=== PATIENT | male | born 1950 | race Caucasian/White ===

== ENCOUNTER 2019-08-07 13:02 | Inpatient (IN) ==
[2019-08-07] MEDS ORDERED: NITROGLYCERIN TOP ONE (13:33)
[2019-08-07] MEDS ORDERED: ASPIRIN PO ONE (13:33)
--- NOTE | 2019-08-07 13:47 | EKG Report ---
Test Performed on : 08/07/2019 1:22:23 PM Test Reason : sob Blood Pressure : / mmHG Vent. Rate : 078 BPM Atrial Rate : 078 BPM P-R Int : 172 ms QRS Dur : 080 ms QT Int : 350 ms P-R-T Axes : 046 001 028 degrees QTc Int : 399 ms Sinus rhythm. with marked sinus arrhythmia. Otherwise normal ECG When compared with ECG of 20-NOV-2007 07:04, No significant change was found Unconfirmed Result
--- NOTE | 2019-08-07 13:51 | Diag Imaging Result Doc PS360 ---
EXAM: CHEST-2 VIEWS 08/07/2019 HISTORY: sob TECHNIQUE: PA and lateral chest COMMENT: There is no evidence of acute cardiac or pulmonary disease. There are no previous studies available for comparison. IMPRESSION: No evidence of acute disease. Electronically signed by Julian Riley 08/07/2019 1:49 PM
[2019-08-07 14:19] LABS: BASO# 0.03 X1000 (0.0-0.2); BASO% 0.3 % (0.0-0.8); EOS# 0.27 X1000 (0.0-0.7); EOS% 2.7 % (0.0-10.0); HEMATOCRIT 47.4 % (42.0-52.0); IMM GRAN# 0.05 X1000 (0.0-0.04); IMM GRAN% 0.5 % (0.0-0.5); LYMPH# 1.76 X1000 (1.2-3.4); LYMPH% 17.6 % (20.5-51.1); MCH 27.7 PG (27-31); MCHC 33.8 g/dL (33-37); MCV 82.1 FL (81-99); MONO# 0.54 X1000 (0.11-0.59); MONO% 5.4 % (1.7-9.3); MPV 9.7 FL (7.4-10.4); NEUT# 7.35 X1000 (1.4-6.5); NEUT% 73.5 % (42.2-75.2); PLT 213 X1000 (130-400); RBC 5.77 XMIL (4.7-6.1); RDW 13.3 % (11.5-14.5)
[2019-08-07 14:23] LABS: INR 1.08; PROTIME 14.1 Seconds (11.0-16.0)
[2019-08-07 14:24] LABS: PTT 33.6 Seconds (22.3-41.8)
[2019-08-07 15:19] LABS: ALB/GLOB RATIO 2.1; ALBUMIN 4.5 g/dL (3.5-5.0); CALCIUM 9.8 mg/dL (8.8-10.2); CREATININE 1.2 mg/dL (0.7-1.2); POTASSIUM 5.1 mmol/L (3.5-5.1); TOTAL BILIRUBIN 0.55 mg/dL (0.20-1.00); TOTAL PROTEIN 6.6 g/dL (6.3-8.3)
--- NOTE | 2019-08-07 16:04 | Diag Imaging Result Doc PS360 ---
EXAM: CT ANGIOGRM PULMONARY ARTERIES 08/07/2019 HISTORY: sudden onset dyspnea TECHNIQUE: This exam was performed using automated exposure control, adjustment of mA or kV according to patient size, and/or use of iterative reconstruction technique. COMMENT: 3-D MIPS were performed. There are no previous studies. There is extensive filling defect within both main renal arteries particularly extending into the lower lobe branches. There are emboli in the anterior segmental branches of both upper lobes as well. The aorta is not distended and there is no evidence of dissection. There are some calcifications in the left anterior descending coronary artery. There is no evidence of pleural fluid. There is cholelithiasis and multiple hepatic cysts are present. There is no evidence of acute pulmonary parenchymal disease. No acute bony abnormalities are present. IMPRESSION: 1. Extensive bilateral pulmonary emboli. 2. Cholelithiasis. Electronically signed by Julian Riley 08/07/2019 4:02 PM
--- NOTE | 2019-08-07 17:48 | EKG Report ---
Test Performed on : 08/07/2019 5:41:25 PM Test Reason : shortness of breath Blood Pressure : / mmHG Vent. Rate : 084 BPM Atrial Rate : 084 BPM P-R Int : 178 ms QRS Dur : 074 ms QT Int : 338 ms P-R-T Axes : 016 -18 -04 degrees QTc Int : 399 ms Normal sinus rhythm. Normal ECG When compared with ECG of 07-AUG-2019 13:22, (Unconfirmed) Inverted T waves have replaced nonspecific T wave abnormality in Inferior leads Unconfirmed Result
[2019-08-07] MEDS ORDERED: LOVENOX 1 MG/KG SUBQ ONE (17:49)
--- NOTE | 2019-08-07 17:53 | PROVIDER DOCUMENTATION ---
This chart was entered by Neo Hinkle Scribe, acting as scribe for Yon Carpenter MD. HPI-Respiratory General - General Chief Complaint: Shortness of Breath Stated Complaint: SOB Time Seen by Provider: 08/07/19 13:24 Source: patient Allergies/Adverse Reactions: Patient Allergies Allergy/AdvReac Type Severity Reaction Status Date / Time No Known Allergies Allergy Verified 08/07/19 14:37 Home Medications: Home Medication List Medication Instructions Recorded Confirmed Last Taken Type Cephalexin 1 cap PO BID 08/07/19 08/07/19 Unknown History Loratadine [Claritin] 1 tab PO DAILY 08/07/19 08/07/19 Unknown History - History of Present Illness-Resp Nature of Presenting Problem: 68 y/o M presents to the ED with spouse due to shortness of breath. 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 Patient reports during that time he did have some chest discomfort and pain in his left arm. Patient reports that he has had the shortness of breath intermittently for the past x2 weeks. Patient reports that he is very active in his daily life. Patient reports that he called his pcp and was supposed to have a echo in the office today but was told to come here due to the severity. Patient has been taking Cephalexin 500mg since Monday to treat a sinus infection and skin infection. Patient denies nausea, vomiting, diaphoresis and all other symptoms. Severity in ED: reports: moderate Onset/Duration: reports: this morning Timing: reports: still present Exposure: reports: unknown cause Cough Quality/Degree: reports: no cough Current Respiratory Medication Therapy: Initiated none Modifying Factors: improves with: nothing Associated Symptoms: reports: chest pain/soreness Similar Symptoms Previously?: Yes Recently seen or treated by another doctor?: No Review of Systems - Adult - REVIEW OF SYSTEMS - ADULT Constitutional: denies: chills, fever Eyes: reports: no symptoms reported Ears, Nose, Mouth & Throat: reports: no symptoms reported Cardiovascular: reports: chest pain. denies: palpitations Respiratory: reports: shortness of breath. denies: wheezing Gastrointestinal: denies: diarrhea, nausea, vomiting Genitourinary: reports: no symptoms reported Musculoskeletal: reports: no symptoms reported Integumentary: reports: no symptoms reported Neurological: denies: dizziness/vertigo, headache/migraines, syncope Psychiatric: reports: no symptoms reported Endocrine: reports: no symptoms reported Hematologic/Lymphatic: reports: no symptoms reported Allergic/Immunologic: reports: no symptoms reported All Other Systems: Reviewed and Negative Past History - Adult - PAST MEDICAL HISTORY-ADULT Review of Records: reports: Nursing Assessment Review, Medications Reviewed Major Childhood Illnesses: reports: denies history Cardiovascular: reports: denies history Respiratory: reports: denies history Gastrointestinal: reports: denies history Obstetrical/Gynecological: reports: denies history Genitourinary: reports: denies history Musculoskeletal: reports: denies history Neurological: reports: denies history Endocrine/Immune: reports: denies history Other Conditions: reports: denies history - PRIOR SURGERIES/PROCEDURES Surgical/Procedure History: reports: reviewed, not pertinent - IMMUNIZATION STATUS Childhood Immunizations: See Nurse Assessment Flu Vaccine: See Nurse Assessment - SOCIAL HISTORY Smoking: denies Substance Use: denies Physical Exam-General - PHYSICAL EXAM-ADULT Initial Vital Signs Reviewed: Yes - CONSTITUTIONAL General Appearance: alert, no apparent distress - NECK Neck: full range of motion, normal inspection - RESPIRATORY Respiratory: lungs clear, normal breath sounds, no respiratory distress, no accessory muscle use - CARDIOVASCULAR Cardiovascular: normal peripheral pulses, regular rate, rhythm - GASTROINTESTINAL (ABDOMEN) Abdominal Exam: non tender, soft - MUSCULOSKELETAL Extremity: non-tender, no pedal edema - SKIN Integumentary: normal color, warm/dry - PSYCHIATRIC Psych/Mental Status: normal mood/affect, oriented x 3 - HEART Score HEART Score: History: Moderately Suspicious HEART Score: ECG: Normal HEART Score: Age: > or = 65 Years HEART Score: Risk Factors for Atherosclerotic Disease: No Risk Factors Known HEART Score: Troponin: < or = Normal Limit Total HEART Score:: 3 Progress - PLAN OF CARE/RESULTS Progress/Plan/Lab Results: Vital Signs - 8 hr 08/07/19 13:10 08/07/19 14:02 08/07/19 14:37 Temperature 98.5 F Pulse Rate 95 H 82 98 H Respiratory Rate 26 H 15 18 Blood Pressure 137/95 136/92 115/84 O2 Sat by Pulse Oximetry 93 L 96 95 08/07/19 15:54 08/07/19 16:46 Temperature Pulse Rate 86 92 H Respiratory Rate 18 15 Blood Pressure 91/66 95/65 O2 Sat by Pulse Oximetry 95 95 Laboratory Results - last 24 hr 08/07/19 08/07/19 08/07/19 14:08 14:08 14:08 WBC 10.00 RBC 5.77 Hgb 16.0 Hct 47.4 MCV 82.1 MCH 27.7 MCHC 33.8 RDW Std Deviation 13.3 Plt Count 213 MPV 9.7 Immature Gran % (Auto) 0.5 Neut % (Auto) 73.5 Lymph % (Auto) 17.6 L Evans % (Auto) 5.4 Eos % (Auto) 2.7 Baso % (Auto) 0.3 Immature Gran # (Auto) 0.05 H Neut # (Auto) 7.35 H Lymph # (Auto) 1.76 Evans # (Auto) 0.54 Eos # (Auto) 0.27 Baso # (Auto) 0.03 PT INR PTT (Actin FS) Sodium 140 Potassium 5.1 Chloride 102 Carbon Dioxide 24 L Anion Gap 14 BUN 14 Creatinine 1.2 Estimated GFR/1.73 m2 60 BUN/Creatinine Ratio 12 Glucose 96 Calculated Osmolality 280 Calcium 9.8 Total Bilirubin 0.55 AST 23 ALT 25 Alkaline Phosphatase 116 Creatine Kinase 48 Troponin T Cqg-[id number] Pept 30 Total Protein 6.6 Albumin 4.5 Globulin 2.1 Albumin/Globulin Ratio 2.1 08/07/19 08/07/19 14:08 14:08 WBC RBC Hgb Hct MCV MCH MCHC RDW Std Deviation Plt Count MPV Immature Gran % (Auto) Neut % (Auto) Lymph % (Auto) Evans % (Auto) Eos % (Auto) Baso % (Auto) Immature Gran # (Auto) Neut # (Auto) Lymph # (Auto) Evans # (Auto) Eos # (Auto) Baso # (Auto) PT 14.1 INR 1.08 PTT (Actin FS) 33.6 Sodium Potassium Chloride Carbon Dioxide Anion Gap BUN Creatinine Estimated GFR/1.73 m2 BUN/Creatinine Ratio Glucose Calculated Osmolality Calcium Total Bilirubin AST ALT Alkaline Phosphatase Creatine Kinase Troponin T < 0.010 Cer-J-Pkmxbbbbarf Pept Total Protein Albumin Globulin Albumin/Globulin Ratio Orders Category Date Time Status Cardiac Monitoring DIRECTED Care 08/07/19 13:15 Active Oxygen Therapy- ED Nursing DIRECTED Care 08/07/19 13:15 Active Saline Loc NOW Care 08/07/19 13:15 Active CHEST-2 VIEWS [RAD] Stat Exams 08/07/19 13:15 Completed CTA [CT ANGIOGRM PULMONARY ARTERIES] [CT] Stat Exams 08/07/19 13:33 Completed CBC WITH ELECTRONIC DIFF [HEME] Stat Lab 08/07/19 14:08 Completed CK PROFILE [SP CHEM] Stat Lab 08/07/19 14:08 Completed COMPREHENSIVE METABOLIC PANEL [CHEM] Stat Lab 08/07/19 14:08 Completed PRO B-NATRIURETIC PEPTIDE Stat Lab 08/07/19 14:08 Completed PROTIME WITH INR [COAG] Stat Lab 08/07/19 14:08 Completed PTT [COAG] Stat Lab 08/07/19 14:08 Completed TROPONIN T Stat Lab 08/07/19 14:08 Completed TROPONIN T Stat Lab 08/07/19 17:46 Ordered Aspirin Med 08/07/19 13:33 Discontinued 325 mg PO NOW ONE Enoxaparin 1 mg/kg [Lovenox 1 mg/kg] Med 08/07/19 17:49 Once 1 each SUBQ NOW ONE Nitroglycerin Med 08/07/19 13:33 Discontinued 0.5 inch TOP NOW ONE CP/SOB/Palp >45 yrs of Age Stat Oth 08/07/19 13:15 Ordered EKG [EKG] Stat Ther 08/07/19 13:15 Draft EKG [EKG] Stat Ther 08/07/19 17:30 Draft Result Diagrams: 08/07/19 14:08 08/07/19 14:08 - REASSESSMENT Reassessment #1 Time Reassessed: 17:51 Status: unchanged (Given asa, SQ lovenox, ntp.) - EKG 1 Time of EKG reading by physician:: 13:27 EKG Read and Signed by:: Yon Carpenter EKG Interpretation (*Must complete 3 of following elements*): Normal Rate: 78 Rhythm: sinus rhythm with arrhythmia [place]: normal QRS: normal FL Interval: normal ST Wave: normal 2 Time of EKG reading by physician:: 17:52 EKG Read and Signed by:: Yon Carpenter EKG Interpretation (*Must complete 3 of following elements*): Normal Rate: 84 Rhythm: NSR [place]: normal QRS: normal FL Interval: normal ST Wave: normal - CT/MRI 1 CT Study: Angiogram Impression: Abnormal, See EMR Report ( EXAM: CT ANGIOGRM PULMONARY ARTERIES 08/07/2019 HISTORY: sudden onset dyspnea TECHNIQUE: This exam was performed using automated exposure control, adjustment of mA or kV according to patient size, and/or use of iterative reconstruction technique. COMMENT: 3-D MIPS were performed. There are no previous studies. There is extensive filling defect within both main renal arteries particularly extending into the lower lobe branches. There are emboli in the anterior segmental branches of both upper lobes as well. The aorta is not distended and there is no evidence of dissection. There are some calcifications in the left anterior descending coronary artery. There is no evidence of pleural fluid. There is cholelithiasis and multiple hepatic cysts are present. There is no evidence of acute pulmonary parenchymal disease. No acute bony abnormalities are present. IMPRESSION: 1. Extensive bilateral pulmonary emboli. 2. Cholelithiasis. Electronically signed by Julian Riley 08/07/2019 4:02 PM 08/07/19 1602 Interpreting Physician: Julian Riley MD Dictated Date/Time: 08/07/19 0450 cc: Yon Carpenter MD; Omari Jaramillo MD) - CONSULTS/PCP/HOSPITALIST Notification #1 *Consult/PCP/Hospitalist*: CLAUDIA Baumann Time Discussed: 17:53 Reason/Comments: Isaiah Consult Disposition: Admit Departure - Departure Date of Disposition Decision: 08/07/19 Time of Disposition Decision: 17:52 DIAGNOSIS: Bilateral pulmonary embolism, Dyspnea on exertion Disposition: ADMITTED INPATIENT 09 Certified Medical Emergency: Emergent Condition: Fair Referrals and Follow-Ups: Omari Jaramillo MD [Primary Care Provider] - - Critical Care Note This patient required my direct & personal management of CC.: Yes Total Time (mins): 45 Critical Care Statement: This patient required my direct personal management to treat or rule out processes, the absence of which, could potentiallly result in sudden, clinically significant life or limb threatening deterioration. Attestation - Physician/ CRISTI Attestation Patient care was provided by Advanced Practice Provider:: No The physician spent face to face time with patient:: Yes Advanced Practice Provider documentation review:: Supervising physician onsite and consulted in the evaluation and care of this patient. The physician did have a face to face encounter with the patient. This chart was documented by the micheline scribe, (Neo Hinkle Scribe) and accurately reflects the services I performed and decisions made by me, Yon Carpenter MD, as attested by the provider's signature.
[2019-08-07] MEDS ORDERED: TYLENOL PO PRN (18:40)
[2019-08-07] MEDS ORDERED: NORCO-7.5 PO PRN (18:40)
[2019-08-07] MEDS ORDERED: ZOFRAN IV PRN (18:40)
[2019-08-07] MEDS ORDERED: DUONEB (A & A) INH PRN (18:40)
[2019-08-07] MEDS ORDERED: LOVENOX SUBQ ONE (18:45)
--- NOTE | 2019-08-07 19:13 | HISTORY AND PHYSICAL ---
HISTORY OF PRESENT ILLNESS: Mr. Blackburn is a 68-year-old. He said that today is Monday. Yesterday, Monday, he got up to go ride on his 4-santamaria and he usually takes a walk up a hill, and he had a real struggle to get up that hill, an so was concerned. Today, he had an appointment to go see Dr. Murphy, and he walked down his driveway and he was very short of breath, had a hard time coming back. He had another spell of shortness of breath when he was trying to take a shower and he really felt like something was wrong. He denies fever or chills. No pleuritic pain. No squeezing-type pressure or heaviness in his chest, but just could not get winded, in his words. He did take a trip to [place] a couple of weeks ago, and he did crush his left hand. He was taking some antibiotic with it. PAST MEDICAL HISTORY: 1. Crushed his hand on a 4-wheel bed about two weeks ago, had some swelling. 2. He used to have some headaches. He does not have that trouble anymore. PAST SURGICAL HISTORY: He has had back surgery. 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 He has had some sinus surgery. ALLERGIES: No known drug allergies. FAMILY HISTORY: They really do not know of any medical issues in the family. SOCIAL HISTORY: Negative for alcohol or tobacco. No illicit drugs. REVIEW OF SYSTEMS: General: No weight gain or loss. No fever or chills. HEENT: Unremarkable. Respiratory: No increased work of breathing or dyspnea. Cardiovascular: No chest pain or tachy palpitation Gastrointestinal and Genitourinary: No gross hematuria or dysuria. Musculoskeletal and Neurologic: No focal complaints. Respiratory: He was doing well until yesterday and symptoms as above. PHYSICAL EXAMINATION: VITAL SIGNS: Temperature 98.5 degrees, pulse 75, respirations 17, blood pressure 95/68. EYES: Pupils are equal and round. LUNGS: Clear in all lung mak. CARDIOVASCULAR: Regular rhythm and rate without murmur or S3. ABDOMEN: Soft. SKIN: Warm and dry. CARDIOVASCULAR: I do not hear an increased P2 closing sound. No distended neck veins. No murmurs appreciated. LABORATORY AND DIAGNOSTIC DATA: White count 10,000, hematocrit 47, platelet count is 213,000. Sodium 140, potassium 5.1, chloride 102, BUN 14, creatinine 1.2, blood sugar 96. Troponin less than 0.01, CK is 48. Albumin is 4.5. Chest x-ray: No evidence of acute disease. CT angiogram reveals extensive bilateral pulmonary emboli and cholelithiasis. ASSESSMENT AND PLAN: Pulmonary thromboemboli, symptomatic. I do not see any sign of definitive right heart strain, but it is bilateral and it is extensive, so we are going to put him on anticoagulant using Lovenox 1 mg/kg subcutaneous q.12. We will give him IV fluids at normal saline running at 85 mL/hour. We will check his thyroid, B12, and folate. We will check another set of troponin and CK in the morning. We will get an echocardiogram in the morning, and just look and see, make sure there is no left ventricular strain. We are going to get Doppler studies and noninvasive studies of both legs, venous studies in the morning as well, and move him to [facility]. cc: Edward Colon MD
[2019-08-07] MEDS: NS 1,000 ML IV SCH (21:29)
[2019-08-08 06:37] LABS: BASO# 0.04 X1000 (0.0-0.2); BASO% 0.4 % (0.0-0.8); EOS# 0.52 X1000 (0.0-0.7); EOS% 5.7 % (0.0-10.0); HEMATOCRIT 45.3 % (42.0-52.0); HEMOGLOBIN 15.3 g/dL (14.0-18.0); IMM GRAN# 0.05 X1000 (0.0-0.04); IMM GRAN% 0.5 % (0.0-0.5); LYMPH# 2.29 X1000 (1.2-3.4); MCH 28.3 PG (27-31); MCHC 33.8 g/dL (33-37); MCV 83.7 FL (81-99); MONO# 0.63 X1000 (0.11-0.59); MONO% 6.9 % (1.7-9.3); NEUT# 5.64 X1000 (1.4-6.5); NEUT% 61.5 % (42.2-75.2); PLT 205 X1000 (130-400); RBC 5.41 XMIL (4.7-6.1); RDW 13.3 % (11.5-14.5); WBC 9.17 X1000 (4.8-10.8)
[2019-08-08 06:40] LABS: INR 1.14; PROTIME 14.8 Seconds (11.0-16.0)
[2019-08-08 06:41] LABS: PTT 43.7 Seconds (22.3-41.8)
[2019-08-08 06:48] LABS: HEMOGLOBIN A1C 5.4 % (4.8-6.0)
--- NOTE | 2019-08-08 07:28 | Diag Imaging Result Doc PS360 ---
EXAM: CHEST-PORTABLE INDICATION: sob TECHNIQUE: One view COMPARISON: 08/07/2019 FINDINGS: The lungs are grossly clear. There is no discrete pleural fluid collection or pneumothorax. The cardiomediastinal silhouette and central vasculature are grossly unremarkable. IMPRESSION: No evidence of acute pathology by plain radiograph. Electronically signed by Driss Smith 08/08/2019 7:26 AM
--- NOTE | 2019-08-08 07:32 | EKG Report ---
Test Performed on : 08/08/2019 06:52:13 AM Test Reason : chest pain Blood Pressure : / mmHG Vent. Rate : 067 BPM Atrial Rate : 067 BPM P-R Int : 170 ms QRS Dur : 084 ms QT Int : 382 ms P-R-T Axes : 050 017 030 degrees QTc Int : 403 ms Normal sinus rhythm. with sinus arrhythmia. Normal ECG When compared with ECG of 07-AUG-2019 17:41, (Unconfirmed) Nonspecific T wave abnormality has replaced inverted T waves in Inferior leads Unconfirmed Result
[2019-08-08 07:39] LABS: ALB/GLOB RATIO 1.5; ALBUMIN 3.8 g/dL (3.5-5.0); CREATININE 1.3 mg/dL (0.7-1.2); TOTAL BILIRUBIN 0.78 mg/dL (0.20-1.00); TOTAL PROTEIN 6.4 g/dL (6.3-8.3)
[2019-08-08 07:44] LABS: FREE T4 1.2 ng/dL (0.93-1.70); TSH 2.5 uIUmL (0.27-4.20)
[2019-08-08] MEDS: LOVENOX SUBQ SCH ×2 (07:59→21:39)
[2019-08-08] MEDS: CLARITIN PO SCH (08:00)
[2019-08-08] MEDS: NS 1,000 ML IV SCH ×2 (09:41→21:38)
--- NOTE | 2019-08-08 10:25 | PROGRESS NOTE ---
DATE: 08/08/2019 SUBJECTIVE: Mr. Blackburn feels better. He says his breathing feels a little better. He remains afebrile. No complaints of pain or pleuritic pain. Does not feel short of breath at this point. No swelling in his legs. They did do his noninvasive lower extremity studies. I have not looked at the results. OBJECTIVE: Vital Signs: Temperature 97.6 degrees, pulse 68, respirations 16, blood pressure 129/87. HEENT: Pupils are equal and round. Lungs: Clear in all lung mak. Cardiovascular: Regular rhythm and rate without murmur or S3. Abdomen: Soft. Skin: Warm and dry. IMAGING: Chest x-ray: No evidence of any acute pathology. ASSESSMENT AND PLAN: 1. Bilateral pulmonary emboli, symptomatic. I do not see evidence of significant right heart strain. Continue his Lovenox 1 mg/kg subcutaneously twice a day. Will look at his noninvasives of his legs. Continue present intravenous fluids. 2. He had hurt his hand on the left, crushing injury. I stopped his antibiotic. There is no sign of infection. Seems to be doing fair from that avenue. Blood pressures look good. cc: Edward Colon MD
--- NOTE | 2019-08-08 13:58 | ECHO REPORT ---
ORDER DATE: 08/08/2019 INTERPRETATION: Emiliano Scales MD. ECHOCARDIOGRAPHIC MEASUREMENTS: 1. Interventricular septum 1.1. 2. Left ventricular posterior wall 1.1. 3. Diastolic diameter 4.7. 4. Left atrium 3.3. 5. Aorta 4. FINDINGS: 1. Normal left ventricular cavity size. Estimated ejection fraction of 65%. Mitral valve was normal. 2. Aortic valve leaflets are trileaflet. 3. Tricuspid valve was normal. Peak velocity across the aortic valve less than 2 m/sec. There is no aortic stenosis or regurgitation. 4. There is mild tricuspid regurgitation. Peak velocity across the tricuspid valve was 3 m/sec, pulmonary artery systolic pressure of 46 mmHg. 5. Right ventricle mildly dilated with preserved right ventricular systolic function. 6. Right ventricle not well visualized. 7. There is no pericardial effusion. 8. Technically suboptimal study, poor acoustic window. cc: MD Ibis Martin CRNP
--- NOTE | 2019-08-08 21:49 | Extremity Venous Study ---
PROCEDURE NAME: Venous U/S Bilateral Legs - 08/07/2019 REFERRING PROVIDER: CLAUDIA Yo READING PHYSICIAN: Aleks Cat MD OPERATIONS SUPERVISOR CHEMICAL CLEANING: Chandu. INDICATION: PE. FINDINGS: The deep and superficial veins of both lower extremities were imaged throughout their course. They are compressible and patent, without thrombus. INTERPRETATION: No deep venous thrombosis or superficial venous thrombosis of either lower extremity. cc: MD Ibis Jamil CRNP
[2019-08-09 06:17] LABS: BASO# 0.03 X1000 (0.0-0.2); BASO% 0.3 % (0.0-0.8); EOS# 0.59 X1000 (0.0-0.7); EOS% 6.6 % (0.0-10.0); HEMATOCRIT 43.6 % (42.0-52.0); HEMOGLOBIN 14.8 g/dL (14.0-18.0); IMM GRAN# 0.05 X1000 (0.0-0.04); IMM GRAN% 0.6 % (0.0-0.5); LYMPH# 2.54 X1000 (1.2-3.4); LYMPH% 28.2 % (20.5-51.1); MCH 28.2 PG (27-31); MCHC 33.9 g/dL (33-37); MCV 83.2 FL (81-99); MONO# 0.73 X1000 (0.11-0.59); MONO% 8.1 % (1.7-9.3); NEUT# 5.06 X1000 (1.4-6.5); NEUT% 56.2 % (42.2-75.2); PLT 212 X1000 (130-400); RBC 5.24 XMIL (4.7-6.1); RDW 13.2 % (11.5-14.5)
[2019-08-09 06:54] LABS: ALB/GLOB RATIO 1.6; ALBUMIN 3.8 g/dL (3.5-5.0); CALCIUM 8.6 mg/dL (8.8-10.2); CREATININE 1.2 mg/dL (0.7-1.2); TOTAL BILIRUBIN 0.53 mg/dL (0.20-1.00); TOTAL PROTEIN 6.2 g/dL (6.3-8.3)
[2019-08-09] MEDS: LOVENOX SUBQ SCH ×2 (08:38→20:11)
[2019-08-09] MEDS: CLARITIN PO SCH (08:38)
[2019-08-09] MEDS: NS 1,000 ML IV SCH ×2 (10:00→20:12)
--- NOTE | 2019-08-09 14:32 | PROGRESS NOTE ---
DATE: 08/09/2019 SUBJECTIVE: Mr. Blackburn feels better. He is still short of breath. Just going to the bathroom makes him very short of breath. OBJECTIVE: Vital signs: Temperature 98.2 degrees, pulse 70, respirations 19, blood pressure 133/73. HEENT: Pupils are equal and round. Lungs: Clear in all lung mak. Cardiovascular: Regular rhythm and without murmur or S3. ABDOMEN: Soft. SKIN: Warm and dry. Urine output is almost 6 L. ASSESSMENT AND PLAN: 1. Bilateral pulmonary emboli, symptomatic. Continue Lovenox at 1 mg/kg subcutaneous twice a day, improving. Continue current orders. 2. Hemodynamics look stable. Blood pressure looks well controlled. Continue fluids at 85 mL an hour. He is getting Lovenox at 100 mg subcutaneously q.12. cc: Edward Colon MD
[2019-08-10 05:39] LABS: BASO# 0.04 X1000 (0.0-0.2); BASO% 0.4 % (0.0-0.8); EOS# 0.68 X1000 (0.0-0.7); EOS% 6.4 % (0.0-10.0); HEMATOCRIT 44.1 % (42.0-52.0); IMM GRAN# 0.06 X1000 (0.0-0.04); IMM GRAN% 0.6 % (0.0-0.5); LYMPH# 3.04 X1000 (1.2-3.4); LYMPH% 28.8 % (20.5-51.1); MCH 28.5 PG (27-31); MCV 83.7 FL (81-99); MONO% 7.6 % (1.7-9.3); MPV 9.8 FL (7.4-10.4); NEUT# 5.95 X1000 (1.4-6.5); NEUT% 56.2 % (42.2-75.2); PLT 203 X1000 (130-400); RBC 5.27 XMIL (4.7-6.1); RDW 13.3 % (11.5-14.5); WBC 10.57 X1000 (4.8-10.8)
[2019-08-10 06:10] LABS: ALB/GLOB RATIO 1.3; ALBUMIN 3.5 g/dL (3.5-5.0); CALCIUM 8.3 mg/dL (8.8-10.2); CREATININE 1.2 mg/dL (0.7-1.2); MAGNESIUM 2.1 mg/dL (1.5-2.7); POTASSIUM 4.1 mmol/L (3.5-5.1); TOTAL BILIRUBIN 0.57 mg/dL (0.20-1.00); TOTAL PROTEIN 6.3 g/dL (6.3-8.3)
[2019-08-10] MEDS: CLARITIN PO SCH (08:41)
[2019-08-10] MEDS: LOVENOX SUBQ SCH ×2 (08:41→19:17)
--- NOTE | 2019-08-10 13:39 | PROGRESS NOTE ---
DATE: 08/10/2019 Mr. Blackburn is feeling a little better. He still gets winded just going to the bathroom, taking a shower. No pleuritic chest pain. No chest pain. OBJECTIVE: Temperature 97.5 degrees, pulse 70, respirations 17, blood pressure 125/85. Pupils are equal and round.Lungs: Clear in all lung mak. Cardiovascular: Regular rhythm and rate without murmur or S3. Urine output is 5300 mL. ASSESSMENT AND PLAN: Bilateral pulmonary edema, symptomatic. Continue Lovenox 1 mg/kg subcu twice a day. Hemodynamics look good. Will need to be here another 48 hours. Hopefully can go home on Monday. We will put him on oral anticoagulant. Note that his lower extremity venous studies no deep venous thrombosis or superficial venous thrombosis of either lower extremity. cc: Edward Colon MD
[2019-08-10] MEDS: NS 1,000 ML IV SCH ×2 (19:13→20:12)
[2019-08-11 06:21] LABS: BASO# 0.04 X1000 (0.0-0.2); BASO% 0.4 % (0.0-0.8); EOS# 0.84 X1000 (0.0-0.7); EOS% 8.5 % (0.0-10.0); HEMATOCRIT 45.6 % (42.0-52.0); HEMOGLOBIN 15.4 g/dL (14.0-18.0); IMM GRAN# 0.07 X1000 (0.0-0.04); IMM GRAN% 0.7 % (0.0-0.5); LYMPH# 2.84 X1000 (1.2-3.4); LYMPH% 28.7 % (20.5-51.1); MCH 28.3 PG (27-31); MCHC 33.8 g/dL (33-37); MCV 83.8 FL (81-99); MONO# 0.68 X1000 (0.11-0.59); MONO% 6.9 % (1.7-9.3); NEUT# 5.41 X1000 (1.4-6.5); NEUT% 54.8 % (42.2-75.2); PLT 219 X1000 (130-400); RBC 5.44 XMIL (4.7-6.1); RDW 13.2 % (11.5-14.5); WBC 9.88 X1000 (4.8-10.8)
[2019-08-11 06:44] LABS: ALB/GLOB RATIO 1.4; ALBUMIN 3.9 g/dL (3.5-5.0); CREATININE 1.3 mg/dL (0.7-1.2); MAGNESIUM 2.1 mg/dL (1.5-2.7); POTASSIUM 4.2 mmol/L (3.5-5.1); TOTAL BILIRUBIN 0.51 mg/dL (0.20-1.00); TOTAL PROTEIN 6.6 g/dL (6.3-8.3)
--- NOTE | 2019-08-11 09:31 | PROGRESS NOTE ---
DATE: 08/11/2019 SUBJECTIVE: Mr. Blackburn is feeling much better. Still gets winded just walking a short distance but no pleuritic pain. Remains afebrile. Blood pressures remained stable. Remains in sinus rhythm. OBJECTIVE: Temperature 97.4 degrees, pulse 68, respirations 15, blood pressure 123/93. Pupils are equal and round. Lungs are clear in all lung mak. Cardiovascular Examination: Regular rhythm and rate without murmur or S3. Abdomen is soft. Skin is warm and dry. ASSESSMENT AND PLAN: 1. Bilateral pulmonary edema, symptomatic. Continue Lovenox 1 mg subcutaneously twice a day. Hemodynamics look good. Hopefully, he can go home tomorrow. I want him to take it easy for a week. We will put him on Xarelto 15 mg twice a day for 21 days and then 20 mg a day following that. 2. Blood pressures look good. 3. Eating well. Bowels are moving. cc: Edward Colon MD
[2019-08-11] MEDS: CLARITIN PO SCH (09:53)
[2019-08-11] MEDS: LOVENOX SUBQ SCH ×2 (09:59→19:21)
[2019-08-11] MEDS: NS 1,000 ML IV SCH ×2 (10:00→19:22)
[2019-08-11 13:22] LABS: CALCIUM 10.1 mg/dL (8.8-10.2)
[2019-08-12 06:12] LABS: BASO# 0.06 X1000 (0.0-0.2); BASO% 0.6 % (0.0-0.8); EOS# 0.79 X1000 (0.0-0.7); HEMATOCRIT 47.6 % (42.0-52.0); IMM GRAN# 0.09 X1000 (0.0-0.04); IMM GRAN% 0.9 % (0.0-0.5); LYMPH# 2.97 X1000 (1.2-3.4); LYMPH% 30.2 % (20.5-51.1); MCH 27.9 PG (27-31); MCHC 33.6 g/dL (33-37); MCV 83.1 FL (81-99); MONO# 0.62 X1000 (0.11-0.59); MONO% 6.3 % (1.7-9.3); MPV 10.1 FL (7.4-10.4); NEUT# 5.31 X1000 (1.4-6.5); PLT 237 X1000 (130-400); RBC 5.73 XMIL (4.7-6.1); RDW 13.3 % (11.5-14.5); WBC 9.84 X1000 (4.8-10.8)
[2019-08-12 06:40] LABS: ALB/GLOB RATIO 1.6; ALBUMIN 4.1 g/dL (3.5-5.0); CALCIUM 8.5 mg/dL (8.8-10.2); CREATININE 1.4 mg/dL (0.7-1.2); MAGNESIUM 2.1 mg/dL (1.5-2.7); POTASSIUM 4.2 mmol/L (3.5-5.1); TOTAL BILIRUBIN 0.54 mg/dL (0.20-1.00); TOTAL PROTEIN 6.7 g/dL (6.3-8.3)
[2019-08-12 07:42] VITALS: BP 133/83
[2019-08-12] MEDS: NS 1,000 ML IV SCH (10:12)
[2019-08-12] MEDS: CLARITIN PO SCH (10:21)
[2019-08-12] MEDS: LOVENOX SUBQ SCH (10:21)
--- NOTE | 2019-08-12 11:18 | DISCHARGE SUMMARY ---
ADMISSION DATE: 08/07/2019 DISCHARGE DATE: 08/12/2019 This is a 68-year-old who presented on 08/07/2019, followed by Omari Hyde. The day I admitted him was on Monday. The previous Monday, he got on his 4-santamaria. He usually takes a walk up the hill, and really struggled. The next day, he felt pretty good, but then the following day, he was very short of breath and had a hard time even getting to the mailbox and even taking a shower, and went to primary care, who sent him to the emergency room. In the emergency room, we found bilateral pulmonary emboli. No sign of right ventricular dysfunction or significant pulmonary hypertension, but he was very dyspneic, and so admitted for IV Lovenox. He was given Lovenox 1 mg/kg subcutaneously twice a day, and kept him until 08/12/2019, and then put him on Xarelto. Will give him 15 mg twice a day for 21 days, and then 20 mg daily after that. I will follow him back in my office in 2 weeks. His discharge medications, he will be on Claritin 10 mg a day, and that is really the only thing he takes at home. He had had a left hand crushing injury, for which he was on antibiotics, and we stopped that. Note that his extremity studies, venous studies, were negative, and his pulmonary arteriogram showed extensive bilateral pulmonary emboli. cc: Edward Colon MD
== END 2019-08-12 12:45 | disposition home health service (06) | DRG 176 ==
LOC: ED 13:02 → 2N 20:55
PROVIDERS: ATTEND Emergency Medicine